=== PATIENT | female | born 1960 | race Caucasian/White ===

== ENCOUNTER 2022-03-27 14:54 | Outpatient (CLI) | payer BC | END 2022-03-27 14:55 | disposition home or self-care (01) | LOC: CSHMAMMO 14:54 | PROVIDERS: ATTEND Student in an Organized Health Care Education/Training Program | DX: Z13.820 Encounter for screening for osteoporosis (principal); M81.0 Age-related osteoporosis without current pathological fracture | CPT/HCPCS: 77080 ==

== ENCOUNTER 2024-10-14 13:43 | Outpatient (CLI) | payer BC ==
[2024-10-14 14:20] LABS: Estimated GFR - POC 57.0
== END 2024-10-14 13:44 | disposition home or self-care (01) ==
LOC: CSHMRI 13:43
PROVIDERS: ATTEND Student in an Organized Health Care Education/Training Program
DX: Z45.811 Encounter for adjustment or removal of right breast implant (principal); Z45.812 Encounter for adjustment or removal of left breast implant; Z98.82 Breast implant status
CPT/HCPCS: 82565; C8908